=== PATIENT | male | born 1985 | race Caucasian/White ===

== ENCOUNTER 2017-12-02 09:58 | Emergency (ER) | payer SELFPAY ==
[~2017-12-02] VITALS: Ht 182.9 cm; Wt 75.0 kg
[2017-12-02] MEDS ORDERED: ESOM20CA PO (10:09)
[2017-12-02] MEDS ORDERED: SODIUM CHLORIDE FLUSH 10ML SYR IVF ONE (10:30)
[2017-12-02] MEDS ORDERED: ONDANSETRON 2MG/ML, 2ML IVPush ONE (10:30)
[2017-12-02] MEDS ORDERED: THIAMINE 100MG TABLET PO ONE (10:30)
[2017-12-02] MEDS ORDERED: SODIUM CHLORIDE 0.9% 1,000ML IVBOLUS ONE (10:30)
[2017-12-02] MEDS ORDERED: LORazepam 2 MG/ML, 1ML IVPush ONE (10:30)
[2017-12-02 11:14] LABS: BASOPHILS # (AUTO) 0.06 x10^3/uL (0-0.1); BASOPHILS % (AUTO) 1 % (0-1); EOSINOPHILS # (AUTO) 0.14 x10^3/uL (0-0.4); EOSINOPHILS % (AUTO) 2 % (1-7); LYMPHOCYTES % (AUTO) 25 % (22-44); MD NO; MEAN CORPUSCULAR HEMOGLOBIN 33.5 pg (27.5-34.5); MEAN CORPUSCULAR HGB CONC 34.4 g/dL (33.2-36.2); MEAN CORPUSCULAR VOLUME 97.4 fL (81-97); MONOCYTES # (AUTO) 0.67 x10^3/uL (0.2-0.8); MONOCYTES % (AUTO) 7 % (2-9); NEUTROPHILS # (AUTO) 6.22 x10^3/uL (1.8-6.8); NEUTROPHILS % (AUTO) 66 % (42-75); PLATELET COUNT 243 x10^3/uL (130-400); RED BLOOD COUNT 5.01 x10^6/uL (4.38-5.82)
[2017-12-02] MEDS ORDERED: ONDANSETRON 2MG/ML, 2ML ONE (11:14)
[2017-12-02] MEDS ORDERED: LORazepam 2 MG/ML, 1ML ONE (11:14)
[2017-12-02] MEDS ORDERED: THIAMINE 100MG TABLET ONE (11:14)
[2017-12-02 11:23] LABS: CHLORIDE 103 mmol/L (98-107)
[2017-12-02 11:36] LABS: ALANINE AMINOTRANSFERASE 45 U/L (12-78); ALBUMIN 4.2 g/dL (3.4-5.0); ALKALINE PHOSPHATASE 79 U/L (45-117); ANION GAP 11 mmol/L (5-15); BILIRUBIN,TOTAL 0.4 mg/dL (0.2-1.0); CALCIUM 9.1 mg/dL (8.5-10.1); CREATININE 0.74 mg/dL (0.7-1.3); TOTAL PROTEIN 8.1 g/dL (6.4-8.2)
[2017-12-02 12:34] LABS: MICROSCOPIC NOT IND
[2017-12-02 12:39] VITALS: BP 163/104
[2017-12-02 12:59] LABS: CULTURE INDICATED? NO
== END 2017-12-02 12:39 | disposition home or self-care (01) ==
LOC: ED 10:49
DX: Z00.8 Encounter for other general examination (principal); F10.10 Alcohol abuse, uncomplicated
CPT/HCPCS: 36415; 71046; 74021; 80053; 81003; 83690; 85025; 93005; 96361; 96374; 96375; 99285; J2060; J2405; J7030

== ENCOUNTER 2020-09-10 16:28 | Emergency (ER) | payer MEDICAID ==
[~2020-09-10] VITALS: Ht 182.9 cm; Wt 73.7 kg
[~2020-09-10 16:28] MED LIST: ESOM20CA PO
[2020-09-10 16:33] VITALS: BP 138/96
--- NOTE | 2020-09-10 17:36 | NUR ---
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 Pt reports he drinks approximately one gallon of vodka daily. Pt states last drink was approximately 1 hour before arrival to ER. Pt appears anxious, restless in bed. Pt intermittently agreeable with assessment and intervention. Pt allowed this RN to apply pulse ox and BP cuff, then removed them before a measurement was able to be taken. Pt fluxuates between agreeing to treatment and wanting to leave. Pt is A&O x4, able to ambulate around unit with steady gait. Pt advised that he may leave and/or refuse treatment whenever he wishes but is encouraged to stay and be evaluated. Pt currently agreeable to POC.
[2020-09-10 17:59] LABS: BASOPHILS % (AUTO) 1 % (0-1); EOSINOPHILS % (AUTO) 1 % (1-7); LYMPHOCYTES % (AUTO) 34 % (22-44); MEAN CORPUSCULAR HGB CONC 34.7 g/dL (33.2-36.2); MEAN PLATELET VOLUME 9.2 fL (7.4-10.4); MONOCYTES % (AUTO) 10 % (2-9); NEUTROPHILS % (AUTO) 55 % (42-75); PLATELET COUNT 140 x10^3/uL (130-400); RED BLOOD COUNT 4.57 x10^6/uL (4.38-5.82)
[2020-09-10 18:00] LABS: MD NO
[2020-09-10 18:09] LABS: ALBUMIN 4.6 g/dL (3.4-5.0); ANION GAP 10 mmol/L (5-15); CALCIUM 8.9 mg/dL (8.5-10.1); CHLORIDE 100 mmol/L (98-107)
[2020-09-10 18:22] LABS: ALANINE AMINOTRANSFERASE 238 U/L (12-78); ALKALINE PHOSPHATASE 152 U/L (45-117); BILIRUBIN,TOTAL 1.5 mg/dL (0.2-1.0); CREATININE 0.83 mg/dL (0.7-1.3); SALICYLATE LEVEL 2.6 mg/dL (2.8-20.0); TOTAL PROTEIN 8.5 g/dL (6.4-8.2)
--- NOTE | 2020-09-10 18:39 | NUR ---
Dr. Velasco at bedside to discuss POC with pt.
== END 2020-09-10 18:58 | disposition home or self-care (01) ==
LOC: ED 18:45
DX: K70.9 Alcoholic liver disease, unspecified (principal); G31.2 Degeneration of nervous system due to alcohol; I44.4 Left anterior fascicular block; F17.200 Nicotine dependence, unspecified, uncomplicated
CPT/HCPCS: 36415; 80053; 80299; 80320; 80329; 85025; 93005; 99284; G0480